=== PATIENT | male | born 1985 | race Caucasian/White ===

== ENCOUNTER 2019-11-17 08:30 | Emergency (ER) | payer BC, OTHER ==
--- NOTE | 2019-11-17 09:29 | EDM.PDOC ---
ED HPI GENERAL MEDICAL PROBLEM - General Chief Complaint: Neuro Symptoms/Deficits Stated Complaint: POSSIBLE STROKE/R SIDE NUMB Time Seen by Provider: 11/17/19 09:21 Source of Information: Reports: Patient, Family History Limitations: Reports: No Limitations - History of Present Illness INITIAL COMMENTS - FREE TEXT/NARRATIVE: Patient presents describing brief loss of speech and ability to use his right arm on awakening this morning. Patient was in his usual state of health when he went to bed last night although he has a longstanding history of thromboembolic disease and takes warfarin daily as a antithrombotic. When he was trying to sit up as he was awakening this morning he said his right arm felt as though it was "asleep" and that he did not have complete control over it. He was trying to call attention to his situation to his who was in the room with him but was unable to express any words. She states that he was obviously distressed with the events as he was crying while trying to sit up and get her attention. He made some type of grunt or none speech sound which got his 's attention and she helped him sit upright. She stated that it looked as though his right side, meaning face neck arm was not working at all. Symptoms lasted for approximately 60 seconds. Symptoms have remained away although he does have some residual paresthesia feeling in the right middle ring and little finger and does not feel completely like he has full strength in those fingers. His INR was checked yesterday in clinic and was found to be 2.2. No other interval changes in health. Onset: Today, Sudden - Related Data Allergies Allergy/AdvReac Type Severity Reaction Status Date / Time No Known Allergies Allergy Verified 11/17/19 08:52 Home Meds: Home Meds Propranolol [Inderal] 20 mg PO BID 11/17/19 [History] Warfarin [Coumadin] 5 mg PO ASDIRECTED 11/17/19 [History] Warfarin [Coumadin] 7.5 mg PO ASDIRECTED 11/17/19 [History] Past Medical History HEENT History: Reports: None Cardiovascular History: Reports: Blood Clots/VTE/DVT, Hypertension, Other (See Below) Other Cardiovascular History: PORTAL VEIN THROMBOSIS. 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 spleenectomy. portal shunt Social & Family History - Tobacco Use Smoking Status *Q: Never Smoker - Caffeine Use Caffeine Use: Reports: Coffee, Soda - Recreational Drug Use Recreational Drug Use: No ED ROS GENERAL - Review of Systems Review Of Systems: See Below Neurological: Reports: Paresthesia, Tingling, Trouble Speaking, Weakness. Denies: Headache ED EXAM, NEURO - Physical Exam Exam: See Below Text/Narrative:: This is an adult male in no distress interviewed in room 4. Exam Limited By: No Limitations General Appearance: Alert, No Apparent Distress Ears: Normal External Exam Nose: Normal Inspection Throat/Mouth: Normal Inspection Neck: Normal Inspection Cardiovascular: Regular Rate, Rhythm Neurological: Normal Reflexes, Other (Resisted shoulder abduction/abduction, elbow flexion extension, handgrip strength shows symmetric responses although slight the weaker flexion response of the right middle, ring, little finger. Bicep tendon reflexes are brisk and symmetric.) Course - Vital Signs Last Recorded V/S: Last Vital Signs Temp 37.3 C 11/17/19 08:48 Pulse 59 L 11/17/19 10:15 Resp 16 11/17/19 08:48 BP 125/87 11/17/19 10:15 Pulse Ox 95 11/17/19 08:48 - Orders/Labs/Meds Orders: Active Orders 24 hr Category Date Time Status Saline Lock Insert [OM.PC] Routine Oth 11/17/19 10:37 Ordered Labs: Laboratory Tests 11/17/19 11/17/19 11/17/19 Range/Units 09:50 09:50 09:50 WBC 5.7 (4.5-11.0) K/uL RBC 5.04 (4.30-5.90) M/uL Hgb 15.2 H (12.0-15.0) g/dL Hct 45.7 (40.0-54.0) % MCV 91 (80-98) fL MCH 30 (27-31) pg MCHC 33 (32-36) % Plt Count 289 (150-400) K/uL Neut % (Auto) 42 (36-66) % Lymph % (Auto) 31 (24-44) % Vernon % (Auto) 13 H (2-6) % Eos % (Auto) 13 H (2-4) % Baso % (Auto) 2 H (0-1) % PT 22.3 H (9.5-12.0) sec INR 2.08 H (0.80-1.20) Sodium 139 L (140-148) mmol/L Potassium 4.4 (3.6-5.2) mmol/L Chloride 105 (100-108) mmol/L Carbon Dioxide 26 (21-32) mmol/L Anion Gap 12.4 (5.0-14.0) mmol/L BUN 11 (7-18) mg/dL Creatinine 1.0 (0.8-1.3) mg/dL Est Cr Clr Drug Dosing 106.46 mL/min Estimated GFR (MDRD) > 60 (>60) Glucose 90 (74-106) mg/dL Calcium 8.8 (8.5-10.1) mg/dL Meds: Medications Discontinued Medications Generic Name Dose Route Start Last Admin Trade Name Freq PRN Reason Stop Dose Admin Sodium Chloride 100 mls @ 3 mls/sec 11/17/19 11:00 11/17/19 12:11 Normal Saline IV 3 mls/sec ASDIRECTED MARCELINA Administration Iopamidol 100 ml 11/17/19 11:00 11/17/19 12:11 Isovue-370 (76%) IV 100 ml . DIRECTED MARCELINA Administration Sodium Chloride 10 ml 11/17/19 10:37 11/17/19 10:45 Saline Flush FLUSH 10 ml ASDIRECTED PRN Administration Keep Vein Open Sodium Chloride 10 ml 11/17/19 10:55 11/17/19 12:11 Saline Flush FLUSH 11/17/19 10:56 10 ml ONETIME ONE Administration - Re-Assessments/Exams Free Text/Narrative Re-Assessment/Exam: 11/17/19 09:43 His symptoms were transient but there may still be some residual changes in the right arm. I will obtain a noncontrast head CT and screening labs. He may need transfer to [place] for further evaluation. 11/17/19 10:22 Discussed with patient that I didn't see anything unusual on the plain CT scan. I contacted [facility] in [place] and spoke with Dr. Curry, the neurologist production consultant. Given that patient's symptoms are almost completely resolved, he recommends obtaining a CT angiogram of the brain here and if normal, have dosage adjustment of his Coumadin. He can also see the patient in clinic for follow- up this next week. I will contact him with CTA results once completed. Patient was fine with this plan and it saves them to drive all the way to [place]. 11/17/19 11:56 Rechecked with patient following completion of CT angiogram. He feels the same and has no new concerns. Awaiting final radiology report. 11/17/19 12:27 Review of radiology report from CT angiogram shows no large vessel occlusions. I reviewed his case with Dr. Curry at [facility] in [place]. 11/17/19 16:[address] angiogram results with the patient, which shows no abnormality. I recommend that he take 7.5 mg of Coumadin tonight and his usual 7.5 mg dose tomorrow night. He should contact [facility] in [place] on Tuesday to arrange a neurology clinic follow-up appointment with Dr. Curry and also talk to the anticoagulation clinic regarding what to do with his Coumadin dosing going forward. Dr. Curry noted that the patient has had a number of borderline/low normal INR readings for quite a while and would benefit from a somewhat increased dose to put his INR closer to a value of 2.5. If feeling worse in any way, he should return here. Departure - Departure Time of Disposition: 12:40 Disposition: Home, Self-Care 01 Clinical Impression: Numbness, Aphasia - Discharge Information Instructions: Paresthesia Referrals: PCP,None [Primary Care Provider] - Forms: ED Department Discharge Additional Instructions: Contact [facility] neurology appointments on Tuesday, [address] Curry, the neurologist we spoke with today would like to see you back in the clinic on Tuesday this week. Tonight take 7.5 mg of Coumadin instead of the usual 5 mg dose. Take your 7.5 mg dose tomorrow as usual and then contact the anticoagulation clinic on Tuesday for further direction from them. If symptoms return prior to your recheck in [place], return to this department. Sepsis Event Note (ED) - Evaluation Sepsis Screening Result: No Definite Risk - Focused Exam Vital Signs: Vital Signs Temp Pulse Resp BP Pulse Ox 11/17/19 10:15 59 L 125/87 11/17/19 08:48 37.3 C 65 16 129/90 95 - My Orders Last 24 Hours: My Active Orders 11/17/19 10:37 Saline Lock Insert [OM.PC] Routine - Assessment/Plan Last 24 Hours: My Active Orders 11/17/19 10:37 Saline Lock Insert [OM.PC] Routine
[2019-11-17] MEDS ORDERED: Sodium Chloride 0.9% 10 ML Syringe FLUSH PRN (10:37)
--- NOTE | 2019-11-17 10:52 | CRLCT ---
INDICATION: TRANSIENT LOSS OF FACE/ARM/VOICE ABILITY AT 0800 COMPARISON: none TECHNIQUE: A CT volumetric acquisition was performed of the brain without IV contrast. Please note that all CT scans at this facility use dose modulation, iterative reconstruction, and/or weight-based dosing when appropriate to reduce radiation dose to as low as reasonably achievable. FINDINGS: The CT images reveal a normal appearance of the cerebral ventricles and basal cisterns. There is no evidence of intracranial hemorrhage, tissue infarction or mass effect. The mastoid air cells and middle ear cavities are clear. The calvarium appears intact. Mucosal thickening within the paranasal sinuses noted involving ethmoid and sphenoid sinuses. IMPRESSION: Negative CT brain. Mild-moderate pre-existing sinus disease. Please note that all CT scans at this facility use dose modulation, iterative reconstruction, and/or weight-based dosing when appropriate to reduce radiation dose to as low as reasonably achievable. Dictated by James Vazquez MD @ Nov 17 2019 10:48AM Signed by Dr. James Vazquez @ Nov 17 2019 10:49AM
[2019-11-17] MEDS ORDERED: Sodium Chloride 0.9% 10 ML Syringe FLUSH ONE (10:55)
[2019-11-17] MEDS ORDERED: Sodium Chloride 0.9% 100 ML IV SCH (11:00)
[2019-11-17] MEDS ORDERED: Iopamidol 755 Mg/ML 100 ML Bottle IV SCH (11:00)
--- NOTE | 2019-11-17 11:40 | CRLCT ---
INDICATION: Transient right facial weakness, right arm weakness, speech difficulty. TECHNIQUE: High-resolution axial CT images acquired through the head following rapid intravenous administration of iodinated contrast. Multiplanar MIPS of cranial vasculature performed. FINDINGS: There is normal filling of the intracranial vasculature; i.e. there is no large vessel occlusion or significant intracranial stenosis. There is no cerebral aneurysm or evidence for vascular malformation. The underlying brain parenchyma is normal at CTA. A mucous retention cyst is present in the right maxillary sinus. IMPRESSION: No large vessel occlusion. No acute intracranial abnormality at CTA. Mariano Salguero MD [employer] Please note that all CT scans at this facility use dose modulation, iterative reconstruction, and/or weight-based dosing when appropriate to reduce radiation dose to as low as reasonably achievable. Dictated by Mariano Salguero MD @ Nov 17 2019 11:48AM Signed by Dr. Mariano Salguero @ Nov 17 2019 11:51AM
== END 2019-11-17 13:01 | disposition home or self-care (01) ==
LOC: JP.ED 08:30
DX: R47.01 Aphasia (principal); R20.0 Anesthesia of skin; R20.2 Paresthesia of skin; R53.1 Weakness; I10 Essential (primary) hypertension; Z86.718 Personal history of other venous thrombosis and embolism; Z79.01 Long term (current) use of anticoagulants
CPT/HCPCS: 36415; 70450; 70496; 80048; 85025; 85610; 99285; J7050; Q9967; 99284

== ENCOUNTER 2021-05-18 20:04 | Emergency (ER) | payer OTHER ==
[2021-05-18] MEDS: Iopamidol 612 MG/ML 100 ML Bottle IV PRN (21:49)
[2021-05-18 22:10] LABS: CORONAVIRUS COVID-19 NAA NEGATIVE (NEGATIVE)
[2021-05-18] MEDS: Pantoprazole 40 MG Vial IVPUSH SCH (22:32)
[2021-05-18] MEDS: Sodium Chloride 0.9% 10 ML Syringe FLUSH PRN (22:32)
[2021-05-18] MEDS: Sodium Chloride 0.9% 1,000 ML IV SCH (22:38)
== END 2021-05-18 23:14 ==
LOC: JP.ED 20:04
DX: K92.2 Gastrointestinal hemorrhage, unspecified (principal); I85.00 Esophageal varices without bleeding; D68.9 Coagulation defect, unspecified; I10 Essential (primary) hypertension; Z86.73 Personal history of transient ischemic attack (TIA), and cerebral infarction without residual deficits; Z79.01 Long term (current) use of anticoagulants; Z20.822 Contact with and (suspected) exposure to COVID-19
CPT/HCPCS: 0241U; 36415; 74177; 80053; 82272; 83690; 85025; 85610; 85730; 86850; 86900; 86901; 96365; 99284; 99285-25; C9113; J7030; Q9967